=== PATIENT | female | born 1950 | race Asian ===

== ENCOUNTER 2025-02-06 02:31 | Inpatient (IN) ==
[2025-02-06 02:58] LABS: iSTAT Creatinine 0.9 mg/dl (0.6-1.3); iSTAT Hemoglobin 13.3 g/dl (12.0-16.0); iSTAT Ionized Calcium 1.27 mmol/l (1.12-1.32); iSTAT Potassium 3.3 mmol/L (3.3-5.0)
[2025-02-06 03:03] LABS: iSTAT Arterial Blood Gas HCO3 26 meg/L (19-24); iSTAT Arterial Blood Gas pCO2 64 mmHg (35-46); iSTAT Arterial Blood Gas pH 7.21 (7.35-7.45); iSTAT Arterial Blood Gas pO2 84 mmHg (80-95); iSTAT Carbon Dioxide 28 mmol/L (24-31); iSTAT Hematocrit 36 % (37-47); iSTAT Hemoglobin 12.2 g/dl (12.0-16.0); iSTAT Potassium 3.2 mmol/L (3.3-5.0); iSTAT Sodium 139 mmol/L (135-144)
[2025-02-06 03:16] LABS: Basophils # (auto) 0.04 K/uL (0.00-0.20); Basophils % (auto) 0.4 %; Eosinophils # (auto) 0.07 K/uL (0.00-0.50); Eosinophils % (auto) 0.6 %; Hematocrit (blood only) 39.7 % (37.0-47.0); Hemoglobin 13.1 g/dl (12.0-16.0); Immature Granulocytes # (auto) 0.08 K/uL (0.01-0.20); Immature Granulocytes % (auto) 0.7 %; Lymphocytes # (auto) 1.93 K/uL (1.20-3.40); Lymphocytes % (auto) 17.3 %; Mean Corpuscular Hemoglobin 30.6 pg (25.0-34.0); Mean Corpuscular Volume 92.8 fL (80.0-100.0); Mean Platelet Volume 11.2 fL (9.4-12.4); Monocytes # (auto) 0.91 K/uL (0.11-0.59); Monocytes % (auto) 8.2 %; Neutrophils % (auto) 72.8 %; Platelet Count 153 K/uL (130-400); RDW Coefficient of Variation 13.4 % (11.5-14.5); RDW Standard Deviation 45.7 fL (36.4-46.3); Red Blood Count 4.28 M/uL (4.20-5.40); White Blood Count 11.13 K/ul (4.8-10.8)
[2025-02-06 03:35] LABS: Alanine Aminotransferase 30 U/L (7-52); Albumin Level 3.4 gm/dl (3.4-5.0); Alkaline Phosphatase 124 U/L (34-104); Anion Gap 8 (3-11); Aspartate Aminotransferase 26 U/L (13-39); BUN Creatinine Ratio 29.3 (10-20); Bilirubin,Total 0.5 mg/dl (0.2-1.0); Blood Urea Nitrogen 24 mg/dl (6-23); Calcium 9.1 mg/dl (8.6-10.3); Carbon Dioxide 27 mmol/L (21-32); Chloride 106 mmol/L (98-107); Globulin 3.4 gm/dl (2.5-4.0); Glucose 243 mg/dl (70-99(Fasting)); Lipase 25 U/L (11-82); Potassium 3.3 mmol/L (3.5-5.1); Sodium 141 mmol/L (136-145); Total Protein 6.8 gm/dl (6.0-8.3)
--- NOTE | 2025-02-06 03:36 | Emergency Department Note ---
Impression & Plan Unresponsive, Acute intracerebral hemorrhage, Acute hypoxemic respiratory failure, Elevated troponin, Abnormal ECG ED Provider Note ED Provider Note NAME: JIM REINOSO AGE:75 SEX: Female : 12/11/1949 ARRIVES VIA: EMS INFORMANT: EMS ED PROVIDER(s): Sarahi Silveira DO CHIEF COMPLAINT: Unresponsive, hypoxic HPI: This is a 74-year-old female brought in by EMS after family called 911 noting she was unresponsive in the backseat of the vehicle. Family reported to EMS that patient had been eating a coffee candy when she choked on it and then "fell asleep". They thought she was tired from the choking episode and so left her sleep for another half an hour until they came to arrest up. When they realized they could not wake her up they became concerned and called 911. EMS stated on arrival patient was unresponsive, hypoxic, and not breathing adequately. She was intubated in the field with a 6.5 ETT, 23 cm at the lip. They state they did notice a black substance in the airway however otherwise had no difficulty during the intubation and no difficulty ventilating. Family told EMS patient does not take any medications, and does not have significant health problems other than a fatty liver and a prior history of a knee replacement. They states she had been normal and in her usual state of health prior to these events this evening. EMS reports patient otherwise stable en route. She did receive a dose of Versed for sedation en route. PAST MEDICAL HISTORY:See Below PAST SURGICAL HISTORY:See Below FAMILY HISTORY:See Below SOCIAL HISTORY:See Below HOME MEDICATIONS:See Below ALLERGIES:See Below VITALS:See Below PHYSICAL EXAMINATION: GENERAL: Unwell appearing, well-nourished, intubated, being bagged EYE EXAM: normal conjunctiva, midposition and fixed OROPHARYNX: lips, buccal mucosa, and tongue normal and mucous membranes are moist, ET tube in place, gag intact NECK: supple, no adenopathy LUNGS: Clear to auscultation. Normal chest wall mechanics, no w/r/r HEART: no murmurs, S1 normal and S2 normal ABDOMEN: abdomen soft, no masses, no rebound or guarding SKIN: no rashes, petechiae, orbruising UPPER EXTREMITIES: upper extremities are grossly normal. nml pulses b/l. LOWER EXTREMITIES: No pitting edema.nml pulses b/l. NEURO EXAM: GCS 3, withdrawals feet to painful stimuli, no response to Babinski testing Vital Signs: reviewed and remarkable Differential Diagnosis: CVA/TIA, ICH, EDNA, PNA, UTI, medication ADR, bacteremia/sepsis, occult trauma, hypoxia, hypercapnia, electrolyte abnormality, as well as others were considered MEDICAL DECISION MAKING: This is a 74-year-old female brought in by EMS unresponsive and intubated prehospital. Patient did have stable vital signs on arrival here and was being bagged. There was no obvious evidence of trauma. Labs drawn and sent, IVs have been established prehospital, EKG and chest were performed at bedside interpreted by me and patient monitored on telemetry. She was started on gentle IV fluids, and following my exam propofol drip was started for sedation. Initial chest x-ray showed prehospital endotracheal tube was right mainstem, this was pulled back and repeat chest x-ray showed it was 1 cm above the myesha. A [id number] BMP was reassuring and patient sent for urgent CT head and CT angio chest given hypoxia and respiratory failure. CT head showed large intracranial hemorrhage in the area of the brainstem. While awaiting CT read from radiology it was noted that patient was having intermittent posturing at her feet, no involvement was noted of her upper extremities. Initial [id number] ABG did show acidemia and hypercarbia. Follow-up following adjustment of vent settings was improved. Patient's blood pressure did remain stable and was not significantly elevated. Patient noted to have ST depression in the EKG and did have a positive troponin although I suspect this is demand related to the hypoxia. CT findings were discussed with outside overnight radiology. Following my discussion with the family I did reach out to on-call neurosurgery at [facility]. We were able to send the images to them and they were able to review them. We discussed the case after he was able to review them and he feels that it is unlikely for patient to have a meaningful outcome and return to her usual state of health given her advanced age and significant neurologic findings at this time. He recommended comfort care measures and lieu of aggressive surgical intervention. Family updated at bedside. After further discussion they verbalized understanding and were in agreement with the plan. They would like to wait for additional family to arrive before extubation and total withdrawal of care. Case discussed with the hospitalist team. Consultation(s): 0403: Discussed with overnight radiology. 0422: Discussed with Dr. Mathias, [facility] [place] [facility] neurosurgery. 0430: Discussed with Dr. Mathias again. 0450: Discussed with Dr. Vincent, [facility] hospitalist team, for additional evaluation and management until additional family arrive to then withdrawal care. 0456: Updated Colette Fortune PA-C, ICU. ER Treatment Provided: See below 0330: Discussed with son and daughter in waiting room area. We discussed results at this time as well as patient's wishes given her age. They state patient would not wish to have surgery or aggressive interventions however would like me to discuss the CT findings with neurosurgery for their expert opinion prior to making a decision. 0440: Discussed with family again at bedside. We did discuss my conversation with neurosurgery and I did show them the patient's head CT. They would like to contact family. They do realize that at this time patient is being supported by the ventilator and likely once the respiratory support is withdrawn she would pass away quickly. Diagnostics Interpreted By Me: -ECG: Normal sinus at 86, normal axis, normal QRS, prolonged QTc, PVC noted, ST depressions noted in 1, 2, V4 through V6 -Cardiac Monitoring: An order was placed for continuous cardiac monitoring. The monitor shows a rate of 76 with normal sinus rhythm. -Laboratory studies: As stated above and show below. -Imaging studies: CT head: obvious ICH cxr 1 -endotracheal tube right mainstem cxr 2 -endotracheal tube has been withdrawn and is now 1 cm above the myesha Triage Nursing Note Reviewed Prior/Outside Records Reviewed Critical Care: Critical care of 72 min performed to assess and manage high likelihood of life-threatening intracranial hemorrhage, involving labs and imaging performed with assessment to evaluate altered mental status, acute hypoxic respiratory failure diagnosis with frequent reassessment. This time includes bedside time, treatment discussions with patient/family/consultants, documentation time and excludes procedure time. Past Med/Surg History Problem List (Updated 02/06/25 @ 07:09 by Sarahi Silveira DO) Abnormal ECG (Acute) Elevated troponin (Acute) Acute hypoxemic respiratory failure (Acute) Acute intracerebral hemorrhage (Acute) Unresponsive (Acute) Social History Smoking Status: Unknown if ever smoked Communication Ability: Unable Current Living Situation Comment: UTO Assistive Devices Comment: UTO Results & Data (ED) Vital Signs Vital Signs - 24 hr 02/06/25 02:35 02/06/25 02:38 02/06/25 02:39 Temperature Temperature Source Pulse Rate 87 92 H 83 Pulse Rate [Apical] Pulse Rhythm Regular Pulse Strength Normal Respiratory Rate 21 21 Respiratory Effort / Characteristics Non-Labored Spontaneous Respiratory Depth Normal Respiratory Pattern Regular Blood Pressure 138/83 138/83 Blood Pressure [Right Arm] Blood Pressure Mean 104 101 Blood Pressure Mean [Right Arm] Blood Pressure Position Lying Blood Pressure Position [Right Arm] Pulse Oximetry 99 98 Oxygen Delivery Method Mechanical Vent Fraction of Inspired Oxygen Sepsis Recent Fever Within 48 Hours No Sepsis New/Unexplained Change in Mental Status N/A Sepsis Action Taken by Nursing No Action Required End-Tidal CO2 51 End Tidal CO2 (18-54mmHg) 02/06/25 03:24 02/06/25 03:30 02/06/25 03:32 Temperature Temperature Source Pulse Rate 84 79 Pulse Rate [Apical] Pulse Rhythm Pulse Strength Respiratory Rate 24 23 Respiratory Effort / Characteristics Respiratory Depth Respiratory Pattern Blood Pressure 125/68 Blood Pressure [Right Arm] Blood Pressure Mean 87 Blood Pressure Mean [Right Arm] Blood Pressure Position Blood Pressure Position [Right Arm] Pulse Oximetry 93 92 Oxygen Delivery Method Mechanical Vent Fraction of Inspired Oxygen 70 Sepsis Recent Fever Within 48 Hours Sepsis New/Unexplained Change in Mental Status Sepsis Action Taken by Nursing End-Tidal CO2 47 41 End Tidal CO2 (18-54mmHg) 02/06/25 03:45 02/06/25 04:00 02/06/25 04:15 Temperature 36.8 C Temperature Source Axillary Pulse Rate Pulse Rate [Apical] 83 72 78 Pulse Rhythm Pulse Strength Respiratory Rate 22 22 22 Respiratory Effort / Characteristics Mechanically Ventilated Mechanically Ventilated Mechanically Ventilated Respiratory Depth Respiratory Pattern Regular Blood Pressure Blood Pressure [Right Arm] 137/60 160/58 H 137/64 Blood Pressure Mean Blood Pressure Mean [Right Arm] 85 92 88 Blood Pressure Position Blood Pressure Position [Right Arm] Lying Lying Lying Pulse Oximetry 94 94 94 Oxygen Delivery Method Mechanical Vent Mechanical Vent Mechanical Vent Fraction of Inspired Oxygen Sepsis Recent Fever Within 48 Hours Sepsis New/Unexplained Change in Mental Status Sepsis Action Taken by Nursing End-Tidal CO2 End Tidal CO2 (18-54mmHg) 40 38 41 02/06/25 04:30 02/06/25 04:45 02/06/25 05:00 Temperature 36.3 C L Temperature Source Axillary Pulse Rate Pulse Rate [Apical] 67 76 63 Pulse Rhythm Pulse Strength Respiratory Rate 22 22 22 Respiratory Effort / Characteristics Mechanically Ventilated Mechanically Ventilated Mechanically Ventilated Respiratory Depth Respiratory Pattern Blood Pressure Blood Pressure [Right Arm] 147/57 H 150/62 H 137/59 L Blood Pressure Mean Blood Pressure Mean [Right Arm] 87 91 85 Blood Pressure Position Blood Pressure Position [Right Arm] Lying Lying Lying Pulse Oximetry 96 95 96 Oxygen Delivery Method Mechanical Vent Mechanical Vent Mechanical Vent Fraction of Inspired Oxygen Sepsis Recent Fever Within 48 Hours Sepsis New/Unexplained Change in Mental Status Sepsis Action Taken by Nursing End-Tidal CO2 End Tidal CO2 (18-54mmHg) 36 40 32 Laboratory Data 02/06/25 02:38 02/06/25 02:38 Lab Results 02/06/25 02/06/25 02/06/25 Range/Units 02:38 02:46 02:51 WBC 11.13 H (4.8-10.8) K/ul RBC 4.28 (4.20-5.40) M/uL Hgb 13.1 (12.0-16.0) g/dl POC Hgb 13.3 12.2 (12.0-16.0) g/dl Hct 39.7 (37.0-47.0) % POC Hct 39 36 L (37-47) % MCV 92.8 (80.0-100.0) fL MCH 30.6 (25.0-34.0) pg MCHC 33.0 (32.0-36.0) g/dL RDW Std Deviation 45.7 (36.4-46.3) fL RDW Coeff of Leticia 13.4 (11.5-14.5) % Plt Count 153 (130-400) K/uL MPV 11.2 (9.4-12.4) fL Immature Gran % (Auto) 0.7 % Neut % (Auto) 72.8 % Lymph % (Auto) 17.3 % [place] % (Auto) 8.2 % Eos % (Auto) 0.6 % Baso % (Auto) 0.4 % Neut # (Auto) 8.10 H (1.40-6.50) K/uL Lymph # (Auto) 1.93 (1.20-3.40) K/uL [place] # (Auto) 0.91 H (0.11-0.59) K/uL Eos # (Auto) 0.07 (0.00-0.50) K/uL Baso # (Auto) 0.04 (0.00-0.20) K/uL Immature Gran # (Auto) 0.08 (0.01-0.20) K/uL PT 10.9 (9.0-12.0) Seconds INR 1.0 (0.9-1.1) POC pH 7.21 L (7.35-7.45) POC pCO2 64 H (35-46) mmHg POC pO2 84 (80-95) mmHg POC HCO3 26 H (19-24) camelia/L POC Base Excess -2.0 (-9-1.8) camelia/L POC ABG O2 Sat 93.0 (90-95) % POC Sodium 142 139 (135-144) mmol/L Sodium 141 (136-145) mmol/L POC Potassium 3.3 3.2 L (3.3-5.0) mmol/L Potassium 3.3 L (3.5-5.1) mmol/L POC Chloride 103 (101-112) mmol/L Chloride 106 (98-107) mmol/L Carbon Dioxide 27 (21-32) mmol/L POC Total CO2 25 28 (24-31) mmol/L Anion Gap 8 (3-11) POC Anion Gap 18.0 (16-25) mmol/L POC BUN 23 H (7-18) mg/dl BUN 24 H (6-23) mg/dl Creatinine 0.82 (0.6-1.2) mg/dl POC Creatinine 0.9 (0.6-1.3) mg/dl Est Cr Clr Drug Dosing Not Reportable eGFR 74.55 BUN/Creatinine Ratio 29.3 H (10-20) Glucose 243 H (70-99(Fasting)) mg/dl POC Glucose (other) 237 H (70-99) mg/dl Lactate 3.3 H* (0.4-2.0) mmol/L Calcium 9.1 (8.6-10.3) mg/dl POC Ioniz Calcium Karmen 1.27 (1.12-1.32) mmol/l Magnesium 2.0 (1.7-2.4) mg/dl Total Bilirubin 0.5 (0.2-1.0) mg/dl AST 26 (13-39) U/L ALT 30 (7-52) U/L Alkaline Phosphatase 124 H (34-104) U/L Troponin I High Sens 79.7 H* (0-14) pg/ml Total Protein 6.8 (6.0-8.3) gm/dl Albumin 3.4 (3.4-5.0) gm/dl Globulin 3.4 (2.5-4.0) gm/dl Albumin/Globulin Ratio 1.0 (0.9-2) Lipase 25 (11-82) U/L TSH 3.217 (0.300-4.500) uIu/ml 02/06/25 Range/Units 03:52 WBC (4.8-10.8) K/ul RBC (4.20-5.40) M/uL Hgb (12.0-16.0) g/dl POC Hgb 11.6 L (12.0-16.0) g/dl Hct (37.0-47.0) % POC Hct 34 L (37-47) % MCV (80.0-100.0) fL MCH (25.0-34.0) pg MCHC (32.0-36.0) g/dL RDW Std Deviation (36.4-46.3) fL RDW Coeff of Leticia (11.5-14.5) % Plt Count (130-400) K/uL MPV (9.4-12.4) fL Immature Gran % (Auto) % Neut % (Auto) % Lymph % (Auto) % [place] % (Auto) % Eos % (Auto) % Baso % (Auto) % Neut # (Auto) (1.40-6.50) K/uL Lymph # (Auto) (1.20-3.40) K/uL [place] # (Auto) (0.11-0.59) K/uL Eos # (Auto) (0.00-0.50) K/uL Baso # (Auto) (0.00-0.20) K/uL Immature Gran # (Auto) (0.01-0.20) K/uL PT (9.0-12.0) Seconds INR (0.9-1.1) POC pH 7.34 L (7.35-7.45) POC pCO2 44 (35-46) mmHg POC pO2 67 L (80-95) mmHg POC HCO3 24 (19-24) camelia/L POC Base Excess -2.0 (-9-1.8) camelia/L POC ABG O2 Sat 92.0 (90-95) % POC Sodium 140 (135-144) mmol/L Sodium (136-145) mmol/L POC Potassium 3.2 L (3.3-5.0) mmol/L Potassium (3.5-5.1) mmol/L POC Chloride (101-112) mmol/L Chloride (98-107) mmol/L Carbon Dioxide (21-32) mmol/L POC Total CO2 25 (24-31) mmol/L Anion Gap (3-11) POC Anion Gap (16-25) mmol/L POC BUN (7-18) mg/dl BUN (6-23) mg/dl Creatinine (0.6-1.2) mg/dl POC Creatinine (0.6-1.3) mg/dl Est Cr Clr Drug Dosing eGFR BUN/Creatinine Ratio (10-20) Glucose (70-99(Fasting)) mg/dl POC Glucose (other) (70-99) mg/dl Lactate (0.4-2.0) mmol/L Calcium (8.6-10.3) mg/dl POC Ioniz Calcium Karmen (1.12-1.32) mmol/l Magnesium (1.7-2.4) mg/dl Total Bilirubin (0.2-1.0) mg/dl AST (13-39) U/L ALT (7-52) U/L Alkaline Phosphatase (34-104) U/L Troponin I High Sens (0-14) pg/ml Total Protein (6.0-8.3) gm/dl Albumin (3.4-5.0) gm/dl Globulin (2.5-4.0) gm/dl Albumin/Globulin Ratio (0.9-2) Lipase (11-82) U/L TSH (0.300-4.500) uIu/ml Administered Medications Propofol (Diprivan) 1,000 mg in 100 mls @ 10.128 mls/hr IV .Q9H53M [facility]; Protocol Stop: 02/09/25 02:44 Last Titration: 02/06/25 03:25 Dose: 20 mcg/kg/min, 10.1 mls/hr Documented By: Titration: 02/06/25 03:00 Dose: 15 mcg/kg/min, 7.6 mls/hr Documented By: Admin: 02/06/25 02:45 Dose: 20 mcg/kg/min, 10.1 mls/hr Documented By: MARION Co-signed By: YE Potassium Chloride 20 meq/ (Lactated Ringer's) 1,010 mls @ 200 mls/hr IV .Q5H3M STA Stop: 02/06/25 10:05 Last Admin: 02/06/25 05:22 Dose: 200 mls/hr Documented By: YE Discontinued Medications Sodium Chloride (Nss) 1,000 mls @ 125 mls/hr IV .Q8H JULIA Stop: 02/09/25 02:44 Last Admin: 02/06/25 02:45 Dose: 125 mls/hr Documented By: MARION Piperacillin Sod/Tazobactam Sod (Zosyn) 4.5 gm in 100 mls @ 200 mls/hr IV NOW ONE; Protocol Stop: 02/06/25 03:08 Last Admin: 02/06/25 05:21 Dose: Not Given Documented By: YE Pantoprazole Sodium (Protonix) 40 mg in 10 mls @ 5 mls/min IV NOW ONE Stop: 02/06/25 02:47 Last Admin: 02/06/25 05:22 Dose: Not Given Documented By: YE Ioversol (Optiray 320 125ml) 119 ml IV ONCE ONE Stop: 02/06/25 03:03 Last Admin: 02/06/25 03:03 Dose: 119 ml Documented By: ANGELIA Miscellaneous (Stat Iv Infusion Titration Per Protocol) 1 each N/A NOW STA Stop: 02/06/25 02:40 Last Admin: 02/06/25 02:44 Dose: 1 each Documented By: MARION Imaging Data Radiologist's Impression: Chest CTA 02/06/25 02:37 EXAM: CT angio chest PE protocol CLINICAL HISTORY: AMS. TECHNIQUE: CT angiography of the chest was performed with 119ml Opitray-320mg/ml intravenous contrast with the following protocol: axial images with reconstructed coronal and sagittal images. One of these 3D techniques was utilized: Maximum Intensity Pixel (MIP), 3D Reconstructed Images, Volume Rendered Images, Surface Shaded Rendering. One of the following dose reduction techniques was utilized for this exam: Automated exposure control, adjustment of the mA and/or kV according to patient size, and use of iterative reconstruction. COMPARISON: CR dated 02/06/2025 at 01:50:00 DOG OR ANIMAL SITTER reviewed. FINDINGS: Aorta and Great Vessels: Ascending Aorta: Normal in caliber, no aneurysm, dissection, or significant atherosclerosis. Aortic Arch: Normal in caliber, no aneurysm, dissection, or significant atherosclerosis. Descending Aorta: Normal in caliber, no aneurysm, dissection, or significant atherosclerosis. Pulmonary Arteries: The main pulmonary artery and its branches are patent. No evidence of pulmonary embolism or significant stenosis. Heart: Cardiac Chambers: increased in size. Pericardium: No pericardial effusion or thickening. Lungs and Pleura: Low position of the endotracheal tube with its end at the level of the myesha. Bilateral multiple small ill-defined consolidation patches of the posterior segments of the lower lobes are more at the left side. Multiple basal atelectases and fibrotic bands are also at the left upper lobe. No pleural effusion or pleural thickening. Mediastinum: No mediastinal mass or abnormal lymphadenopathy. Normal appearance of the trachea and central bronchi. Hilar Structures: Hilar structures are normal without enlargement. Chest Wall: No mass lesions or abnormalities in the chest wall. Vascular Structures: Superior Vena Cava: Patent without evidence of stenosis or thrombus. Inferior Vena Cava: Patent without evidence of stenosis or thrombus. Bones and Soft Tissues: Spondylosis of the thoracic spine. No fractures, lytic, or blastic lesions of the visualized bony structures. Soft tissues are unremarkable. Upper abdominal cuts are unremarkable apart from bovear hepatic lobe. IMPRESSION: 1. No evidence of acute pulmonary thrombosis. 2. The low position of the endotracheal tube is at the level of the myesha. Needs to be repositioned. 3. Bilateral consolidation of the posterior segments of the lower lobes with air bronchogram is more at the left side, suggestive of infective/inflammatory changes. Clinical correlation is recommended. 4. Bilateral basal and left upper lobe atelectasis and fibrotic bands. 5. Cardiomegaly. Electronically signed by Hussain Bruce 02-06-2025 04:13 AM Chest X-Ray 02/06/25 02:37 EXAM: XR chest 1V portable CLINICAL HISTORY: hypoxia, dyspnea. TECHNIQUE: An X-ray image of the chest is obtained in AP projection. COMPARISON: No prior studies are available for comparison. FINDINGS: The endotracheal tube is located at the myesha, at the origin of the right main bronchus. Pulmonary Parenchyma: Prominent central bronchovascular markings with mild peribronchial thickening. Clinical correlation is advised to assess for pulmonary congestion/bronchitis. Suspected left lower zone retrocardiac opacity. No significant pleural effusion or thickening. Heart and Mediastinum: Mild apparent cardiomegaly with prominent aortic medical and pulmonary artery shadow. Bony Thorax: Degenerative changes of the visualized skeleton. Soft Tissues: Soft tissues overlying the chest wall are unremarkable. IMPRESSION: 1. Improperly positioned endotracheal tube at the origin of the right main bronchus. Recommendations: Pulling off the endotracheal tube for about 5 cm. 2. Suspected left lower zone retrocardiac opacity. Clinical correlation is advised. 3. Prominent central bronchovascular markings with mild peribronchial thickening. Clinical correlation is advised to assess for pulmonary congestion/bronchitis. [facility] was called at [phone] at 2:45 AM DOG OR ANIMAL SITTER, 02/06/[address] Silveira was informed regarding the presence of Critical Medical Findings in the report. Electronically signed by Hussain Bruce 02-06-2025 03:[address] 02/06/25 02:37 EXAM: CT head/brain wo con CLINICAL HISTORY: AMS. TECHNIQUE: Axial non-contrast CT scan of the brain was performed from the skull base to the high parietal region. One of the following dose reduction techniques was utilized for this exam: Automated exposure control, adjustment of the mA and/or kV according to patient size, use of iterative reconstruction. COMPARISON: None. FINDINGS: Brain Parenchyma: There is an area of bleeding seen in the brainstem involving the midbrain and kosta. Inferiorly, this is possibly extending into the fourth ventricle and cerebellar vermis, and superiorly extending into left thalamus. It measures [id number] mm in [id number] dimensions. There is a subtle surrounding low attenuation, raising the possibility of edema Tiny hyperdense foci are also identified adjacent left basal ganglia Small hyperdensity in the right temporal lobe as per image: 8(8/32), this may moreno partial volume or small focus of bleed No gross midline shift seen Mild diffuse low attenuation is identified in the bilateral periventricular deep white matter Ventricular System: Possible extension of bleed in third ventricle as per image: 12( 12/32) Mild isodensity was also seen in the occipital horn of the right lateral ventricles, which appear prominent. Subarachnoid Spaces: Age-appropriate mild widening of sulci Orbits: Normal appearance of the globes, optic nerves, and extraocular muscles. No evidence of orbital masses or abnormal density. Sinuses: Mucosal thickening identified in both ethmoid sinus Mastoid Air Cells: Clear mastoid air cells. No evidence of mastoiditis. Skull: Normal skull morphology. IMPRESSION: 1. There is haemorrhage involving the brainstem, possibly extending into the fourth ventricle and cerebellar vermis, and superiorly extending into the left thalamus. There is a possible small bleed in the third ventricle. 2. Tiny hyperdense foci are also identified adjacent left basal ganglia, possibly foci of bleeding. 3. Small hyperdensity in the right temporal lobe, this may be partial volume or a small focus of bleed. 4. Occipital horn of both lateral ventricles are bulky and appear isodense. Needs follow-up examination to rule out developing bleed. 5. MRI brain is advised for further evaluation. [facility] was called at [phone] at 2:58 AM DOG OR ANIMAL SITTER, 02/06/[address] Silveira was informed regarding the presence of Critical Medical Findings in the report. Electronically signed by Hussain Bruce 02-06-2025 04:01 AM Chest X-Ray 02/06/25 02:42 EXAM: XR chest 1V portable CLINICAL HISTORY: Tube reposition, TECHNIQUE: An X-ray image of the chest is obtained in AP projection. COMPARISON: 02/06/2025 Earlier study on the same day. FINDINGS: Tubes and lines: The endotracheal tube's tip is located about 8 mm above the myesha, near the origin of the right main bronchus. (It appears slightly higher in position than the other study) It needs repositioning. Pulmonary Parenchyma: Prominent central bronchovascular markings with mild peribronchial thickening. Clinical correlation is advised to assess for pulmonary congestion/bronchitis. Suspected left lower zone retrocardiac opacity. Right lower lung zone paracardiac opacity. Left lower zone linear opacities could be atelectatic. Nodular opacity in the left upper zone, measured 1.2 cm, could be related to asymmetric costochondral calcification. No significant pleural effusion. Heart and Mediastinum: Apparent cardiomegaly with prominent aortic knuckle and pulmonary artery shadow. Bony Thorax: Degenerative changes of the visualized skeleton. Soft Tissues: Soft tissues overlying the chest wall are unremarkable. IMPRESSION: 1. Low-lying endotracheal tube, located at 8 mm above the myesha. Recommendations: Pull up the endotracheal tube for about 4-5 cm. 2. Left lower zone retrocardiac opacity and right lower lung zone paracardiac opacity. Clinical correlation is advised to assess for pneumonic infiltrates. (Progressive/more conspicuous in the present study) 3. No other significant interval change. Electronically signed by Hussain Bruce 02-06-2025 04:54 AM Discharge Plan Visit Data Chief Complaint: Unresponsive Stated Complaint: Choking ED Provider: Sarahi Silveira Discharge Problem: Unresponsive, Acute intracerebral hemorrhage, Acute hypoxemic respiratory failure, Elevated troponin, Abnormal ECG Patient Disposition: Admitted As Inpatient Condition: Critical Discharge Instructions Interventions: ED Discharge Assessment Last Done: 02/06/25 05:41
[2025-02-06 03:40] LABS: Gastric Occult Blood Positive (Negative); pH Gastric Fluid 4
[2025-02-06 03:44] LABS: Prothrombin Time 10.9 Seconds (9.0-12.0)
--- NOTE | 2025-02-06 03:49 | XRay Report ---
EXAM: XR chest 1V portable CLINICAL HISTORY: hypoxia, dyspnea. TECHNIQUE: An X-ray image of the chest is obtained in AP projection. COMPARISON: No prior studies are available for comparison. FINDINGS: The endotracheal tube is located at the myesha, at the origin of the right main bronchus. Pulmonary Parenchyma: Prominent central bronchovascular markings with mild peribronchial thickening. Clinical correlation is advised to assess for pulmonary congestion/bronchitis. Suspected left lower zone retrocardiac opacity. No significant pleural effusion or thickening. Heart and Mediastinum: Mild apparent cardiomegaly with prominent aortic medical and pulmonary artery shadow. Bony Thorax: Degenerative changes of the visualized skeleton. Soft Tissues: Soft tissues overlying the chest wall are unremarkable. IMPRESSION: 1. Improperly positioned endotracheal tube at the origin of the right main bronchus. Recommendations: Pulling off the endotracheal tube for about 5 cm. 2. Suspected left lower zone retrocardiac opacity. Clinical correlation is advised. 3. Prominent central bronchovascular markings with mild peribronchial thickening. Clinical correlation is advised to assess for pulmonary congestion/bronchitis. [facility] ER was called at [phone] at 2:45 AM SECURITY SYSTEMS INSTALLER, 02/06/[address] Silveira was informed regarding the presence of Critical Medical Findings in the report. Electronically signed by Hussain Bruce 02-06-2025 03:48 AM
[2025-02-06 03:50] LABS: Troponin I High Sensitivity 79.7 pg/ml (0-14)
[2025-02-06 03:51] LABS: Thyroid Stimulating Hormone 3.217 uIu/ml (0.300-4.500)
--- NOTE | 2025-02-06 04:02 | CT Scan Report ---
EXAM: CT head/brain wo con CLINICAL HISTORY: AMS. TECHNIQUE: Axial non-contrast CT scan of the brain was performed from the skull base to the high parietal region. One of the following dose reduction techniques was utilized for this exam: Automated exposure control, adjustment of the mA and/or kV according to patient size, use of iterative reconstruction. COMPARISON: None. FINDINGS: Brain Parenchyma: There is an area of bleeding seen in the brainstem involving the midbrain and kosta. Inferiorly, this is possibly extending into the fourth ventricle and cerebellar vermis, and superiorly extending into left thalamus. It measures [id number] mm in TSXAPXCC dimensions. There is a subtle surrounding low attenuation, raising the possibility of edema Tiny hyperdense foci are also identified adjacent left basal ganglia Small hyperdensity in the right temporal lobe as per image: 8(8/32), this may moreno partial volume or small focus of bleed No gross midline shift seen Mild diffuse low attenuation is identified in the bilateral periventricular deep white matter Ventricular System: Possible extension of bleed in third ventricle as per image: 12( 12/32) Mild isodensity was also seen in the occipital horn of the right lateral ventricles, which appear prominent. Subarachnoid Spaces: Age-appropriate mild widening of sulci Orbits: Normal appearance of the globes, optic nerves, and extraocular muscles. No evidence of orbital masses or abnormal density. Sinuses: Mucosal thickening identified in both ethmoid sinus Mastoid Air Cells: Clear mastoid air cells. No evidence of mastoiditis. Skull: Normal skull morphology. IMPRESSION: 1. There is haemorrhage involving the brainstem, possibly extending into the fourth ventricle and cerebellar vermis, and superiorly extending into the left thalamus. There is a possible small bleed in the third ventricle. 2. Tiny hyperdense foci are also identified adjacent left basal ganglia, possibly foci of bleeding. 3. Small hyperdensity in the right temporal lobe, this may be partial volume or a small focus of bleed. 4. Occipital horn of both lateral ventricles are bulky and appear isodense. Needs follow-up examination to rule out developing bleed. 5. MRI brain is advised for further evaluation. [facility] ER was called at [phone] at 2:58 AM TELETYPE ADJUSTER, 02/06/[address] Silveira was informed regarding the presence of Critical Medical Findings in the report. Electronically signed by Hussain Bruce 02-06-2025 04:01 AM
[2025-02-06 04:05] LABS: iSTAT Arterial Blood Gas HCO3 24 meg/L (19-24); iSTAT Arterial Blood Gas pCO2 44 mmHg (35-46); iSTAT Arterial Blood Gas pH 7.34 (7.35-7.45); iSTAT Arterial Blood Gas pO2 67 mmHg (80-95); iSTAT Carbon Dioxide 25 mmol/L (24-31); iSTAT Hematocrit 34 % (37-47); iSTAT Hemoglobin 11.6 g/dl (12.0-16.0); iSTAT Potassium 3.2 mmol/L (3.3-5.0); iSTAT Sodium 140 mmol/L (135-144)
--- NOTE | 2025-02-06 04:14 | CT Scan Report ---
EXAM: CT angio chest PE protocol CLINICAL HISTORY: AMS. TECHNIQUE: CT angiography of the chest was performed with 119ml Opitray-320mg/ml intravenous contrast with the following protocol: axial images with reconstructed coronal and sagittal images. One of these 3D techniques was utilized: Maximum Intensity Pixel (MIP), 3D Reconstructed Images, Volume Rendered Images, Surface Shaded Rendering. One of the following dose reduction techniques was utilized for this exam: Automated exposure control, adjustment of the mA and/or kV according to patient size, and use of iterative reconstruction. COMPARISON: CR dated 02/06/2025 at 01:50:00 STRUCTURAL ANALYSIS ENGINEER reviewed. FINDINGS: Aorta and Great Vessels: Ascending Aorta: Normal in caliber, no aneurysm, dissection, or significant atherosclerosis. Aortic Arch: Normal in caliber, no aneurysm, dissection, or significant atherosclerosis. Descending Aorta: Normal in caliber, no aneurysm, dissection, or significant atherosclerosis. Pulmonary Arteries: The main pulmonary artery and its branches are patent. No evidence of pulmonary embolism or significant stenosis. Heart: Cardiac Chambers: increased in size. Pericardium: No pericardial effusion or thickening. Lungs and Pleura: Low position of the endotracheal tube with its end at the level of the myesha. Bilateral multiple small ill-defined consolidation patches of the posterior segments of the lower lobes are more at the left side. Multiple basal atelectases and fibrotic bands are also at the left upper lobe. No pleural effusion or pleural thickening. Mediastinum: No mediastinal mass or abnormal lymphadenopathy. Normal appearance of the trachea and central bronchi. Hilar Structures: Hilar structures are normal without enlargement. Chest Wall: No mass lesions or abnormalities in the chest wall. Vascular Structures: Superior Vena Cava: Patent without evidence of stenosis or thrombus. Inferior Vena Cava: Patent without evidence of stenosis or thrombus. Bones and Soft Tissues: Spondylosis of the thoracic spine. No fractures, lytic, or blastic lesions of the visualized bony structures. Soft tissues are unremarkable. Upper abdominal cuts are unremarkable apart from bovear hepatic lobe. IMPRESSION: 1. No evidence of acute pulmonary thrombosis. 2. The low position of the endotracheal tube is at the level of the myesha. Needs to be repositioned. 3. Bilateral consolidation of the posterior segments of the lower lobes with air bronchogram is more at the left side, suggestive of infective/inflammatory changes. Clinical correlation is recommended. 4. Bilateral basal and left upper lobe atelectasis and fibrotic bands. 5. Cardiomegaly. Electronically signed by Hussain Bruce 02-06-2025 04:13 AM
--- NOTE | 2025-02-06 04:54 | XRay Report ---
EXAM: XR chest 1V portable CLINICAL HISTORY: Tube reposition, TECHNIQUE: An X-ray image of the chest is obtained in AP projection. COMPARISON: 02/06/2025 Earlier study on the same day. FINDINGS: Tubes and lines: The endotracheal tube's tip is located about 8 mm above the myesha, near the origin of the right main bronchus. (It appears slightly higher in position than the other study) It needs repositioning. Pulmonary Parenchyma: Prominent central bronchovascular markings with mild peribronchial thickening. Clinical correlation is advised to assess for pulmonary congestion/bronchitis. Suspected left lower zone retrocardiac opacity. Right lower lung zone paracardiac opacity. Left lower zone linear opacities could be atelectatic. Nodular opacity in the left upper zone, measured 1.2 cm, could be related to asymmetric costochondral calcification. No significant pleural effusion. Heart and Mediastinum: Apparent cardiomegaly with prominent aortic knuckle and pulmonary artery shadow. Bony Thorax: Degenerative changes of the visualized skeleton. Soft Tissues: Soft tissues overlying the chest wall are unremarkable. IMPRESSION: 1. Low-lying endotracheal tube, located at 8 mm above the myesha. Recommendations: Pull up the endotracheal tube for about 4-5 cm. 2. Left lower zone retrocardiac opacity and right lower lung zone paracardiac opacity. Clinical correlation is advised to assess for pneumonic infiltrates. (Progressive/more conspicuous in the present study) 3. No other significant interval change. Electronically signed by Hussain Bruce 02-06-2025 04:54 AM
--- NOTE | 2025-02-06 05:00 | History & Physical Report ---
Date of Service February 06, 2025 Assessment & Plan (1) Intracranial hemorrhage: Plan: Intracranial hemorrhage Acute hypoxemic respiratory failure secondary to possible aspiration secondary to above Admit to ICU Vent management Family in agreement with comfort care approach but requesting for terminal extubation and withdrawal of care after arrival of another family member as per family request. Family reasonably refusing unnecessary blood work/testing and declining antibiotics for aspiration pneumonia in light of prognosis. DVT prophylaxis. SCDs DNR, no CPR in event of cardiac arrest. Patient family requesting updates providers. Mr. Forest Luz (son), contact #[phone]. Ms. Bia Luz (daughter), contact #[phone]. Total critical care time was 40 minutes. Text document was generated using [employer] voice recognition software. It may contain grammatical or spelling errors. Kindly contact undersigned for clarification of any documentation item in question. History of Present Illness Chief Complaint: Unresponsiveness as per family Primary Care Provider: Dr. Edgar Figueroa from [facility] History obtained from patient's family, ED provider, and records. Unable to obtain history from patient secondary to unresponsiveness/intubated state. Medical history significant for osteoarthritis. Patient is a resident of [facility] who traveled to the [facility] 3 days ago with her daughter to attend her granddaughter's graduation in [place]. Patient and 2 children left [place] yesterday by car to visit [facility]. Patient noted by family to have choked on something. Patient later noted to be sleepy. Family could not rouse patient while at a pit stop in [place], [place] early a.m. Right facial droop and right arm posturing as per son. Patient still with pulse and noted to have shallow breathing. Possible brownish material in the mouth as per son. No known recent history of trauma as per family. Family unaware of blood pressure issues. EMS called to pit stop. O2 sats noted to be 70s, heart rate 40s. Patient subsequently intubated and brought to ER for evaluation. IV Zosyn administered at the ER. ED provider discussed case with [facility] neurosurgeon who did not recommend surgical intervention. Comfort measures recommended. Medical History as above Surgical History : Knee surgery Family History : No strokes or DM as per family Personal/Social history : Non-smoker, no EtOH intake, retired businesswoman Past Med/Surg History Problem List (Updated 02/06/25 @ 08:29 by Prabhu Cassidy MD) Intracranial hemorrhage Abnormal ECG (Acute) Elevated troponin (Acute) Acute hypoxemic respiratory failure (Acute) Acute intracerebral hemorrhage (Acute) Unresponsive (Acute) Social History Smoking Status: Unknown if ever smoked Communication Ability: Unable Current Living Situation Comment: UTO Assistive Devices Comment: UTO Review of Systems Review of Systems: Could not be reliably obtained secondary to unresponsiveness/intubated state Physical Exam Physical Exam: GENERAL: Sedated, obese, intubated, no respiratory distress SKIN: Normal color, warm HEENT: [place] palpebral conjunctivae, no ptosis, dry buccal mucosa, ET in place NECK : Supple, short neck, no tenderness CHEST : Decreased breath sounds, no tenderness HEART : RRR, no obvious murmurs ABDOMEN: Some distention, nontender EXTREMITIES : Minimal LE swelling, no LE tenderness, palpable pulses, no other conspicuous deformities noted NEUROLOGIC : Sedated, decerebrate posturing, no facial asymmetry, gait and stance not assessed Results & Data Results & Data Vital Signs (Past 12 Hours) Vital Signs Temp Pulse Pulse Resp BP BP Pulse Ox 02/06/25 04:45 36.3 C L 76 22 150/62 H 95 02/06/25 04:30 67 22 147/57 H 96 02/06/25 04:15 78 22 137/64 94 02/06/25 04:00 72 22 160/58 H 94 02/06/25 03:45 36.8 C 83 22 137/60 94 02/06/25 03:32 79 23 92 02/06/25 03:30 84 24 125/68 93 02/06/25 03:24 02/06/25 02:39 83 21 138/83 98 02/06/25 02:38 92 H 02/06/25 02:35 87 21 138/83 99 O2 Del Method FiO2 02/06/25 04:45 Mechanical Vent 02/06/25 04:30 Mechanical Vent 02/06/25 04:15 Mechanical Vent 02/06/25 04:00 Mechanical Vent 02/06/25 03:45 Mechanical Vent 02/06/25 03:32 70 02/06/25 03:30 02/06/25 03:24 Mechanical Vent 02/06/25 02:39 Mechanical Vent 02/06/25 02:38 02/06/25 02:35 Laboratory Results Laboratory Results WBC 11.13 K/ul (4.8-10.8) H 02/06/25 02:38 RBC 4.28 M/uL (4.20-5.40) 02/06/25 02:38 Hgb 13.1 g/dl (12.0-16.0) 02/06/25 02:38 POC Hgb 11.6 g/dl (12.0-16.0) L 02/06/25 03:52 Hct 39.7 % (37.0-47.0) 02/06/25 02:38 POC Hct 34 % (37-47) L 02/06/25 03:52 MCV 92.8 fL (80.0-100.0) 02/06/25 02:38 MCH 30.6 pg (25.0-34.0) 02/06/25 02:38 MCHC 33.0 g/dL (32.0-36.0) 02/06/25 02:38 RDW Std Deviation 45.7 fL (36.4-46.3) 02/06/25 02:38 RDW Coeff of Leticia 13.4 % (11.5-14.5) 02/06/25 02:38 Plt Count 153 K/uL (130-400) 02/06/25 02:38 MPV 11.2 fL (9.4-12.4) 02/06/25 02:38 Immature Gran % (Auto) 0.7 % 02/06/25 02:38 Neut % (Auto) 72.8 % 02/06/25 02:38 Lymph % (Auto) 17.3 % 02/06/25 02:38 Ector % (Auto) 8.2 % 02/06/25 02:38 Eos % (Auto) 0.6 % 02/06/25 02:38 Baso % (Auto) 0.4 % 02/06/25 02:38 Neut # (Auto) 8.10 K/uL (1.40-6.50) H 02/06/25 02:38 Lymph # (Auto) 1.93 K/uL (1.20-3.40) 02/06/25 02:38 Ector # (Auto) 0.91 K/uL (0.11-0.59) H 02/06/25 02:38 Eos # (Auto) 0.07 K/uL (0.00-0.50) 02/06/25 02:38 Baso # (Auto) 0.04 K/uL (0.00-0.20) 02/06/25 02:38 Immature Gran # (Auto) 0.08 K/uL (0.01-0.20) 02/06/25 02:38 PT 10.9 Seconds (9.0-12.0) 02/06/25 02:38 INR 1.0 (0.9-1.1) 02/06/25 02:38 POC pH 7.34 (7.35-7.45) L 02/06/25 03:52 POC pCO2 44 mmHg (35-46) 02/06/25 03:52 POC pO2 67 mmHg (80-95) L 02/06/25 03:52 POC HCO3 24 camelia/L (19-24) 02/06/25 03:52 POC Total CO2 25 mmol/L (24-31) 02/06/25 03:52 POC Base Excess -2.0 camelia/L (-9-1.8) 02/06/25 03:52 POC ABG O2 Sat 92.0 % (90-95) 02/06/25 03:52 POC Sodium 140 mmol/L (135-144) 02/06/25 03:52 Sodium 141 mmol/L (136-145) 02/06/25 02:38 POC Potassium 3.2 mmol/L (3.3-5.0) L 02/06/25 03:52 Potassium 3.3 mmol/L (3.5-5.1) L 02/06/25 02:38 POC Chloride 103 mmol/L (101-112) 02/06/25 02:46 Chloride 106 mmol/L (98-107) 02/06/25 02:38 Carbon Dioxide 27 mmol/L (21-32) 02/06/25 02:38 POC Total CO2 25 mmol/L (24-31) 02/06/25 02:46 Anion Gap 8 (3-11) 02/06/25 02:38 POC Anion Gap 18.0 mmol/L (16-25) 02/06/25 02:46 POC BUN 23 mg/dl (7-18) H 02/06/25 02:46 BUN 24 mg/dl (6-23) H 02/06/25 02:38 Creatinine 0.82 mg/dl (0.6-1.2) 02/06/25 02:38 POC Creatinine 0.9 mg/dl (0.6-1.3) 02/06/25 02:46 Est Cr Clr Drug Dosing Not Reportable 02/06/25 02:38 eGFR 74.55 02/06/25 02:38 BUN/Creatinine Ratio 29.3 (10-20) H 02/06/25 02:38 Glucose 243 mg/dl (70-99(Fasting)) H 02/06/25 02:38 POC Glucose (other) 237 mg/dl (70-99) H 02/06/25 02:46 Lactate 3.3 mmol/L (0.4-2.0) H* 02/06/25 02:38 Calcium 9.1 mg/dl (8.6-10.3) 02/06/25 02:38 POC Ioniz Calcium Karmen 1.27 mmol/l (1.12-1.32) 02/06/25 02:46 Magnesium 2.0 mg/dl (1.7-2.4) 02/06/25 02:38 Total Bilirubin 0.5 mg/dl (0.2-1.0) 02/06/25 02:38 AST 26 U/L (13-39) 02/06/25 02:38 ALT 30 U/L (7-52) 02/06/25 02:38 Alkaline Phosphatase 124 U/L (34-104) H 02/06/25 02:38 Troponin I High Sens 79.7 pg/ml (0-14) H* 02/06/25 02:38 Total Protein 6.8 gm/dl (6.0-8.3) 02/06/25 02:38 Albumin 3.4 gm/dl (3.4-5.0) 02/06/25 02:38 Globulin 3.4 gm/dl (2.5-4.0) 02/06/25 02:38 Albumin/Globulin Ratio 1.0 (0.9-2) 02/06/25 02:38 Lipase 25 U/L (11-82) 02/06/25 02:38 TSH 3.217 uIu/ml (0.300-4.500) 02/06/25 02:38 Gastric Fluid pH 4 02/06/25 Unknown Gastric Occult Blood Positive (Negative) A 02/06/25 Unknown Impressions Chest CTA 02/06/25 02:37 EXAM: CT angio chest PE protocol CLINICAL HISTORY: AMS. TECHNIQUE: CT angiography of the chest was performed with 119ml Opitray-320mg/ml intravenous contrast with the following protocol: axial images with reconstructed coronal and sagittal images. One of these 3D techniques was utilized: Maximum Intensity Pixel (MIP), 3D Reconstructed Images, Volume Rendered Images, Surface Shaded Rendering. One of the following dose reduction techniques was utilized for this exam: Automated exposure control, adjustment of the mA and/or kV according to patient size, and use of iterative reconstruction. COMPARISON: CR dated 02/06/2025 at 01:50:00 PUBLIC AFFAIRS DIRECTOR reviewed. FINDINGS: Aorta and Great Vessels: Ascending Aorta: Normal in caliber, no aneurysm, dissection, or significant atherosclerosis. Aortic Arch: Normal in caliber, no aneurysm, dissection, or significant atherosclerosis. Descending Aorta: Normal in caliber, no aneurysm, dissection, or significant atherosclerosis. Pulmonary Arteries: The main pulmonary artery and its branches are patent. No evidence of pulmonary embolism or significant stenosis. Heart: Cardiac Chambers: increased in size. Pericardium: No pericardial effusion or thickening. Lungs and Pleura: Low position of the endotracheal tube with its end at the level of the myesha. Bilateral multiple small ill-defined consolidation patches of the posterior segments of the lower lobes are more at the left side. Multiple basal atelectases and fibrotic bands are also at the left upper lobe. No pleural effusion or pleural thickening. Mediastinum: No mediastinal mass or abnormal lymphadenopathy. Normal appearance of the trachea and central bronchi. Hilar Structures: Hilar structures are normal without enlargement. Chest Wall: No mass lesions or abnormalities in the chest wall. Vascular Structures: Superior Vena Cava: Patent without evidence of stenosis or thrombus. Inferior Vena Cava: Patent without evidence of stenosis or thrombus. Bones and Soft Tissues: Spondylosis of the thoracic spine. No fractures, lytic, or blastic lesions of the visualized bony structures. Soft tissues are unremarkable. Upper abdominal cuts are unremarkable apart from bovear hepatic lobe. IMPRESSION: 1. No evidence of acute pulmonary thrombosis. 2. The low position of the endotracheal tube is at the level of the myesha. Needs to be repositioned. 3. Bilateral consolidation of the posterior segments of the lower lobes with air bronchogram is more at the left side, suggestive of infective/inflammatory changes. Clinical correlation is recommended. 4. Bilateral basal and left upper lobe atelectasis and fibrotic bands. 5. Cardiomegaly. Electronically signed by Hussain Bruce 02-06-2025 04:[address] 02/06/25 02:37 EXAM: CT head/brain wo con CLINICAL HISTORY: AMS. TECHNIQUE: Axial non-contrast CT scan of the brain was performed from the skull base to the high parietal region. One of the following dose reduction techniques was utilized for this exam: Automated exposure control, adjustment of the mA and/or kV according to patient size, use of iterative reconstruction. COMPARISON: None. FINDINGS: Brain Parenchyma: There is an area of bleeding seen in the brainstem involving the midbrain and kosta. Inferiorly, this is possibly extending into the fourth ventricle and cerebellar vermis, and superiorly extending into left thalamus. It measures [id number] mm in TSXAPXCC dimensions. There is a subtle surrounding low attenuation, raising the possibility of edema Tiny hyperdense foci are also identified adjacent left basal ganglia Small hyperdensity in the right temporal lobe as per image: 8(8/32), this may moreno partial volume or small focus of bleed No gross midline shift seen Mild diffuse low attenuation is identified in the bilateral periventricular deep white matter Ventricular System: Possible extension of bleed in third ventricle as per image: 12( 12/32) Mild isodensity was also seen in the occipital horn of the right lateral ventricles, which appear prominent. Subarachnoid Spaces: Age-appropriate mild widening of sulci Orbits: Normal appearance of the globes, optic nerves, and extraocular muscles. No evidence of orbital masses or abnormal density. Sinuses: Mucosal thickening identified in both ethmoid sinus Mastoid Air Cells: Clear mastoid air cells. No evidence of mastoiditis. Skull: Normal skull morphology. IMPRESSION: 1. There is haemorrhage involving the brainstem, possibly extending into the fourth ventricle and cerebellar vermis, and superiorly extending into the left thalamus. There is a possible small bleed in the third ventricle. 2. Tiny hyperdense foci are also identified adjacent left basal ganglia, possibly foci of bleeding. 3. Small hyperdensity in the right temporal lobe, this may be partial volume or a small focus of bleed. 4. Occipital horn of both lateral ventricles are bulky and appear isodense. Needs follow-up examination to rule out developing bleed. 5. MRI brain is advised for further evaluation. [facility] ER was called at [phone] at 2:58 AM PUBLIC AFFAIRS DIRECTOR, 02/06/[address] Silveira was informed regarding the presence of Critical Medical Findings in the report. Electronically signed by Hussain Bruce 02-06-2025 04:01 AM Chest X-Ray 02/06/25 02:42 EXAM: XR chest 1V portable CLINICAL HISTORY: Tube reposition, TECHNIQUE: An X-ray image of the chest is obtained in AP projection. COMPARISON: 02/06/2025 Earlier study on the same day. FINDINGS: Tubes and lines: The endotracheal tube's tip is located about 8 mm above the myesha, near the origin of the right main bronchus. (It appears slightly higher in position than the other study) It needs repositioning. Pulmonary Parenchyma: Prominent central bronchovascular markings with mild peribronchial thickening. Clinical correlation is advised to assess for pulmonary congestion/bronchitis. Suspected left lower zone retrocardiac opacity. Right lower lung zone paracardiac opacity. Left lower zone linear opacities could be atelectatic. Nodular opacity in the left upper zone, measured 1.2 cm, could be related to asymmetric costochondral calcification. No significant pleural effusion. Heart and Mediastinum: Apparent cardiomegaly with prominent aortic knuckle and pulmonary artery shadow. Bony Thorax: Degenerative changes of the visualized skeleton. Soft Tissues: Soft tissues overlying the chest wall are unremarkable. IMPRESSION: 1. Low-lying endotracheal tube, located at 8 mm above the myesha. Recommendations: Pull up the endotracheal tube for about 4-5 cm. 2. Left lower zone retrocardiac opacity and right lower lung zone paracardiac opacity. Clinical correlation is advised to assess for pneumonic infiltrates. (Progressive/more conspicuous in the present study) 3. No other significant interval change. Electronically signed by Hussain Bruce 02-06-2025 04:54 AM Diagnostic Findings EKG as per my interpretation :Rate 90, NSR, normal axis, T wave abnormalities inferior leads, PVCs
--- NOTE | 2025-02-06 05:03 | Critical Care Consultation ---
Date of Consultation February 06, 2025 Assessment & Plan (1) Acute hypoxemic respiratory failure: Plan Reason for Consultation: Acute respiratory failure requiring mechanical ventilation Transition from propofol to fentanyl infusion Comfort-based care without escalation Continue mechanical ventilation, lung protective ventilation Awaiting compassionate extubation once remainder of family arrives at facility SpO2 goal > 92% No indication for further labs or imaging as would not change care plan No indication for antibiotic regimen, Na goal, etc LINES/TUBES/DRAINS - ETT (Day #1) OGT (Day #1) Ramirez (Day #1) PIV x2 DVT PROPHYLAXIS - N/A CODE STATUS - DNR in the event of cardiac arrest DISPOSITION - ICU I have personally spent 35 minutes of critical care time in the direct management of this patient. This is a life/limb threatening event. This includes time spent evaluating patient, direct bedside care, chart review, placing orders, interpretation of diagnostic studies, discussion with consultants, patient, and family members, as well as other required patient management activities. This time is exclusive of all separately billable procedures, and teaching time and separate from and in addition to any other critical care service time. Thank you for allowing us to participate in the care of this patient. Please refer to my attending physician's documentation for any further recommendations. Supervising Physician Co-Signing Physician Notes I have personally evaluated and examined this patient. I agree with assessment and plan of Dior Fortune PA-C Catastrophic brainstem bleeding, undergoing life-sustaining mechanical ventilation with no escalation of care. Anticipate terminal extubation when additional family arrives, expectant management/comfort care, not receiving antihypertensives. History of Present Illness Reason for Consultation: Ventilator dependence Requesting Physician: Thanhr Attending Physician: Ange History of Present Illness Ms. Anila Luz is a 74YOF with no documented past medical history of presented to [facility] ED via EMS due to unresponsiveness. Reportedly patient and family were en route from [place] to [place]. Patient moving from [place] to live with family in [place]. Initially there was concern for a choking episode. She was found to be hypoxic and bradycardic by EMS and was intubated in the field. On arrival to ED patient remains unresponsive, occasionally posturing, GCS 4T. Unfortunately CTH revealed devastating intracranial hemorrhage. Remainder of work-up thus far has been unremarkable with exception of bronchitis and LLL opacity and mild respiratory acidosis. After discussion between Dr. Silveira and family decision was made to transition to comfort measures once remainder of family arrives. She is admitted to the ICU due to mechanical ventilation pending compassionate extubation. [facility] is consulted for management of ventilator. Patient seen in ED B01. She is intubated and unresponsive. NAD, afebrile. Slightly hypertensive, otherwise hemodynamically stable. ROS unable to be obtained. Patient History Social History Smoking Status: Unknown if ever smoked Communication Ability: Unable Current Living Situation Comment: UTO Assistive Devices Comment: UTO Review of Systems Review of Systems: Unobtainable due to endotracheal tube Physical Exam Constitutional: well developed, well nourished and + mechanically ventilated Eyes: + anicteric sclerae, + corneal abnormali ty, + dilated pupils and + fixed pupils ENMT: Dried blood left nare. ETT in place Neck: trachea midline, no thyromegaly Respiratory: Auscultation: + rhonchi patient not spontaneously breathing Cardiovascular: Rate/Rhythm: regular rate and regular rhythm Heart Sounds: no murmur Vessels: no JVD Extremities: normal capillary refill; no edema Gastrointestinal (Abdomen): normal bowel sounds, soft, nontender, no hepatosplenomegaly Musculoskeletal: No cyanosis, no clubbing. Postures to pain Skin: no rashes, warm and dry Neurologic: + obtunded Comatose Patient: + cornea l reflex absent, + decerebrate rigidity and + response to noxious stimuli absent Genitourinary: Ramirez in place draining light yellow urine Results & Data Results & Data Vital Signs (Past 12 Hours) Vital Signs Temp Pulse Pulse Resp BP BP Pulse Ox 02/06/25 04:45 36.3 C L 76 22 150/62 H 95 02/06/25 04:30 67 22 147/57 H 96 02/06/25 04:15 78 22 137/64 94 02/06/25 04:00 72 22 160/58 H 94 02/06/25 03:45 36.8 C 83 22 137/60 94 02/06/25 03:32 79 23 92 02/06/25 03:30 84 24 125/68 93 02/06/25 03:24 02/06/25 02:39 83 21 138/83 98 02/06/25 02:38 92 H 02/06/25 02:35 87 21 138/83 99 O2 Del Method FiO2 02/06/25 04:45 Mechanical Vent 02/06/25 04:30 Mechanical Vent 02/06/25 04:15 Mechanical Vent 02/06/25 04:00 Mechanical Vent 02/06/25 03:45 Mechanical Vent 02/06/25 03:32 70 02/06/25 03:30 02/06/25 03:24 Mechanical Vent 02/06/25 02:39 Mechanical Vent 02/06/25 02:38 02/06/25 02:35 Laboratory Results Reviewed Diagnostic Findings Reviewed Medications Administered See MARGARITA AGUILAR Procedure Codes (Charges) Ventilator Management Ventilator Managment: 30935 Ventilation assist and management; Hospital inpt/obs, intl day Coding Level of Care Code 85686 IN/OBS CONSULT LVL 2,35M Diagnoses Acute hypoxemic respiratory failure J96.01 CPT Codes Ventilator Management - Ventilator Managment: [id number] Ventilation assist and management; Hospital inpt/obs, intl day ([id number]) Time Spent (min) 35
--- NOTE | 2025-02-06 06:48 | XRay Report ---
EXAM: XR chest 1V portable CLINICAL HISTORY: Tube reposition TECHNIQUE: An X-ray image of the chest is obtained in AP projection. COMPARISON: 02/06/2025 01:50:00 INSULATION WORKER INTERIOR SURFACE CR. FINDINGS: Tubes and lines: The endotracheal tube's tip is located about 1.2 cm above the myesha, (It appears slightly higher in position than the other study) It needs repositioning. Pulmonary Parenchyma: Prominent central bronchovascular markings with mild peribronchial thickening. Clinical correlation is advised to assess for pulmonary congestion/bronchitis. Suspected left lower zone retrocardiac opacity. Right lower lung zone paracardiac opacity. Left lower zone linear opacities could be atelectatic. Blunting of left costophrenic angle. No significant pleural effusion. Heart and Mediastinum: Apparent cardiomegaly with prominent aortic knuckle and pulmonary artery shadow. Bony Thorax: Degenerative changes of the visualized skeleton. Soft Tissues: Soft tissues overlying the chest wall are unremarkable. IMPRESSION: 1. The endotracheal tube's tip is located about 1.2 cm above the myesha, (It appears slightly higher in position than the prior study) It needs repositioning. 2. Otherwise, no significant time interval changes. Electronically signed by Hussain Bruce 02-06-2025 06:48 AM
--- NOTE | 2025-02-06 14:03 | Electrocardiogram Report ---
Test Reason : Blood Pressure : */* mmHG Vent. Rate : 86 BPM Atrial Rate : 86 BPM P-R Int : 152 ms QRS Dur : 82 ms QT Int : 414 ms P-R-T Axes : 60 9 28 degrees QTcB Int : 495 ms Sinus rhythm with occasional Premature ventricular complexes Nonspecific ST abnormality Prolonged QT Abnormal ECG No previous ECGs available Confirmed by Jaren Carpenter ([id number]) on 02/06/2025 2:03:00 PM Referred By: REFERRED SELF Confirmed By: Jaren Carpenter
--- NOTE | 2025-02-06 14:17 | Communication Note ---
Date of Service: February 06, 2025 Pt's family are ready and would like merciful extubation be done, communicated w/ RN about such. Comfort measures / meds ordered. I have had meeting/discussion with Forest, Bia and Pt's AYDEN through the day and have answered all their questions. Forest understands that comfort medications are needed to prevent any unwanted discomfort/agitation during/after extubation procedure.
--- NOTE | 2025-02-06 15:21 | Death Pronouncement Note ---
Date of Service February 06, 2025 Pronouncement Note Admission Date February 06, 2025 Summary Time of : 1452 hrs. Date of : 02/06/2025 Cause of : Acute hypoxemic respiratory failure secondary to possible aspiration secondary to intracranial hemorrhage. Additional Data Confirmation of : no pulse, no respirations, no heart sounds and pupils fixed and dilated Family: at bedside Attending physician: Manfred Hall MD Was code activated?: No Autopsy requested?: No litigation examiner notified?: No Organ bank notified?: Yes
--- NOTE | 2025-02-06 15:27 | Discharge Summary ---
Date of Service February 06, 2025 Admission HPI Per Admitting Provider History obtained from patient's family, ED provider, and records. Unable to obtain history from patient secondary to unresponsiveness/intubated state. Medical history significant for osteoarthritis. Patient is a resident of [facility] who traveled to the [facility] 3 days ago with her daughter to attend her granddaughter's graduation in [place]. Patient and 2 children left [place] yesterday by car to visit [facility]. Patient noted by family to have choked on something. Patient later noted to be sleepy. Family could not rouse patient while at a pit stop in [place], [place] early a.m. Right facial droop and right arm posturing as per son. Patient still with pulse and noted to have shallow breathing. Possible brownish material in the mouth as per son. No known recent history of trauma as per family. Family unaware of blood pressure issues. EMS called to pit stop. O2 sats noted to be 70s, heart rate 40s. Patient subsequently intubated and brought to ER for evaluation. IV Zosyn administered at the ER. ED provider discussed case with [facility] [place] who did not recommend surgical intervention. Comfort measures recommended. Medical History as above Surgical History : Knee surgery Family History : No strokes or DM as per family Personal/Social history : Non-smoker, no EtOH intake, retired businesswoman Admission Exam Per Admitting Provider GENERAL: Sedated, obese, intubated, no respiratory distress SKIN: Normal color, warm HEENT: [place] palpebral conjunctivae, no ptosis, dry buccal mucosa, ET in place NECK : Supple, short neck, no tenderness CHEST : Decreased breath sounds, no tenderness HEART : RRR, no obvious murmurs ABDOMEN: Some distention, nontender EXTREMITIES : Minimal LE swelling, no LE tenderness, palpable pulses, no other conspicuous deformities noted NEUROLOGIC : Sedated, decerebrate posturing, no facial asymmetry, gait and stance not assessed Principal Diagnosis Acute hypoxemic respiratory failure possible aspiration secondary intracranial hemorrhage. Discharge Exam no pulse, ho HR, no lung sounds pupils fixed and dilated extubated. Discharge Data Allergies Allergy/AdvReac Type Severity Reaction Status Date / Time Penicillins AdvReac Unknown Verified 02/06/25 14:24 Consultations 02/06/25 05:16 ED Decision to Admit Stat 02/06/25 06:13 Consult Hunter Trapper Routine Ordered Studies 02/06/25 02:37 CT angio chest PE protocol Stat CT head/brain wo con Stat Hospital Course (1) Intracranial hemorrhage: Per prior attending w/ addendum: Intracranial hemorrhage Acute hypoxemic respiratory failure secondary to possible aspiration secondary to above Admit to ICU Vent management Family in agreement with comfort care approach but requesting for terminal extubation and withdrawal of care after arrival of another family member as per family request. Family reasonably refusing unnecessary blood work/testing and declining antibiotics for aspiration pneumonia in light of prognosis. DVT prophylaxis. SCDs DNR, no CPR in event of cardiac arrest. Patient family requesting updates providers. Mr. Forest Luz (son), contact #[phone]. Ms. Bia Luz (daughter), contact #[phone]. Addendum: I had discussion/meeting with patient's family member through the day, finally they decided to go ahead with merciful extubation, comfort care measures/medications were ordered and patient was mercifully extubated. Patient at 1452 hrs. Time of : 1452 hrs. Date of : 02/06/2025 Cause of : Acute hypoxemic respiratory failure secondary to possible aspiration secondary to intracranial hemorrhage. Text document was generated using [employer] voice recognition software. It may contain grammatical or spelling errors. Kindly contact undersigned for clarification of any documentation item in question. Home Health Attestation I certify that this patient is under my care and that I, or a physicians retirement assistant working with me, had a face to-face encounter that meets the home health [id number] encounter requirements with this patient. The encounter with the patient was in whole, or in part, for the following medical condition, which is the primary reason for home health care (list medical condition): I certify that, based on my findings, the following services are medically necessary home health services: My clinical findings support the need for the above services because: Further, I certify that my clinical findings support that this patient is homebound (i.e. absences from home require considerable and taxing effort and are for medical reasons or scientologist services or infrequently or of short duration when for other reasons) because: Certification for Home Health Services: Based on the above findings, I certify that this patient is confined to the home and needs intermittent mcc care, physical therapy and/or speech therapy or continues to need occupational therapy. The patient is under my care, and I have initiated the establishment of the plan of care. This patient will be followed by a physician who will periodically review the plan of care. Total Time Total Time Spent Total Time Spent (In Minutes): 55 Discharge Plan Discharge Items Patient Disposition: Other Date/Time: 02/06/25 14:52
== END 2025-02-07 01:00 | disposition expired ==
LOC: ED 02:31 → EDBD 02:31 → 1E 05:03